=== PATIENT | female | born 1975 | race African-American/Black ===

== ENCOUNTER 2023-06-25 11:59 | Emergency (ER) | payer OTHER ==
[~2023-06-25] VITALS: Ht 167.6 cm; Wt 79.0 kg
[~2023-06-25 11:59] MED LIST: LISINOPRIL
[2023-06-25] MEDS ORDERED: ACETAMINOPHEN 325MG TABLET PO STA (12:08)
[2023-06-25] MEDS ORDERED: KETOROLAC 30MG/ML VIAL IM STA (12:08)
[2023-06-25 12:11] VITALS: O2SAT 98
[2023-06-25 13:08] VITALS: BP 148/65; PULSE 90; RESP 18; TEMP 98.8
[2023-06-25] MEDS ORDERED: IBUP-2028 MT (14:48)
== END 2023-06-25 15:38 | disposition home or self-care (01) ==
LOC: ER 12:24
DX: S83.91XA Sprain of unspecified site of right knee, initial encounter (principal); F41.9 Anxiety disorder, unspecified; I10 Essential (primary) hypertension; M79.10 Myalgia, unspecified site; W18.39XA Other fall on same level, initial encounter; Y93.89 Activity, other specified; Y92.89 Other specified places as the place of occurrence of the external cause; Y99.8 Other external cause status
CPT/HCPCS: 81025; 73502; 73552; 73562; 96372; 99284; J1885; Z7610